=== PATIENT | female | born 1990 ===

== ENCOUNTER 2024-05-01 14:42 | Emergency (ER) | payer MEDICAID, SELFPAY ==
[2024-05-01 14:53] VITALS: BP 118/80
--- NOTE | 2024-05-01 15:10 | ED.PDOC.TRB ---
ED Provider Triage
-
A medical screening examination has been initiated by a qualified medical provider. Based on the assessment performed at this time, it has been determined that an emergent medical condition may exist and the patient has been informed that further
medical evaluation and possible additional diagnostic testing may be needed.
HPI: This is a medical evaluation conducted in person to initiate diagnostic evaluation and provide initial therapeutics. Please see further documentation by the treating clinician.
GENERAL: Alert , in no apparent distress
EYE: No visual abnormalities.
NECK: Trachea midline
ENT: No visible abnormalities.
LUNGS: No acute respiratory distress
ABD: minimal LLQ/left pelvis tenderness
NEUROLOGICAL: Alert and oriented
SKIN: Skin intact. No visible changes.
MUSCULOSKELETAL: Moving extremities normally
pain with movement o jony left hip
PSYCH: Normal and appropriate interaction.
34-year-old female 18 weeks presents for left-sided lower pelvic pain which she has had intermittently throughout her the last couple weeks but got much worse around 1 PM. She had no trauma. She is able to walk but she
does have worsening pain in her left lower pelvis with flexion of her hip. She has no radiation down her leg. Is not radiating to her back. She has no vaginal bleeding or leakage, she occasionally feels the baby move at this point of her
. She has had ultrasound showing IUP without complications. Her OB is at [place]. She has tried Tylenol for this pain.
On exam she was seated position which is making it difficult to assess but it seems as if she has left sided very low abdominal/pelvic tenderness minimally.
Her uterus is gravid but there is no tenderness there.
I discussed with the human service technician, and will be a limited evaluation of her left ovary
Because of the but hopefully they will be able to see flow to the ovary.
Given her symptoms I more suspect this is round ligament pain. Will check a urine and ultrasound and screening blood work.
[2024-05-01 15:30] LABS: % Basophils 0.3 % (0-2); % Eosinophils 1.7 % (0-6); % Immature Granulocytes 1.1 % (0-0.5); % Lymphocytes 16.9 % (20.5-51.1); % Monocytes 7.5 % (1.7-9.3); % Neutrophils 72.5 % (42.2-75.2); Absolute Eosinophils 0.2 10^3/uL (0-0.7); Absolute Immature Granulocytes 0.2 10^3/uL (0-0.05); Absolute Lymphocytes 2.4 10^3/uL (1.2-3.4); Absolute Monocytes 1.1 10^3/uL (0.1-0.6); Absolute Neutrophils 10.5 10^3/uL (1.4-6.5); Hematocrit 33.8 % (37.0-47.0); Hemoglobin 11.6 g/dL (12.0-16.0); Mean Corp Hgb Conc. 34.3 g/dL (33.0-37.0); Mean Corpuscular Hgb 30.1 pg (27.0-31.0); Mean Corpuscular Volume 87.6 fL (81.0-99.0); Nucleated Red Blood Cells % 0 %; Platelet Count 261 10^3/uL (130-400); Red Blood Cell Count 3.86 10^6/uL (4.20-5.40); Red Cell Dist. Width 13.6 % (11.5-14.5); White Blood Cell Count 14.5 10^3/uL (4.8-10.8)
[2024-05-01 15:42] LABS: ALT (SGPT) 22 U/L (0-35); AST (SGOT) 23 U/L (14-36); Albumin 4.3 g/dl (3.5-5.0); Alkaline Phosphatase 56 U/L (38-126); Blood Urea Nitrogen 7 mg/dl (7-17); Calcium 9.6 mg/dl (8.4-10.2); Carbon Dioxide 23 mmol/L (22-30); Chloride 96 mmol/L (98-107); Glucose 98 mg/dl (70-99); Potassium 3.7 mmol/L (3.5-5.1); Sodium 130 mmol/L (135-145); Total Bilirubin 0.3 mg/dl (0.2-1.3); Total Protein 7.2 g/dl (6.3-8.2); eGFR > 60.00
--- NOTE | 2024-05-01 16:00 | ED.GENMED ---
History of Present Illness
<Jazmyn Davis PA-C - Last Filed: 05/01/24 18:33>
General
Chief Complaint: Abdominal Symptoms
Source: patient
Exam Limitations: none
Time Seen by Provider: 05/01/24 15:56
Nursing documentation reviewed up to this point in time: agreed with
History of Present Illness
History of Present Illness:
34-year-old female presenting to the emergency department for evaluation of left lower pelvic pain. Patient states symptoms initially started today around 1 PM. She describes a dull, aching pain in her left pelvis with some radiation to her left
back. Patient did take a Tylenol at home and states the pain did resolve. At this moment�she is asymptomatic. She does however endorse that she had similar pain a few weeks ago which was less severe. Patient denies any associated fevers, chills,
nausea, vomiting. Patient denies any dysuria or hematuria. Patient denies any abnormal vaginal bleeding or fluid leakage. Patient reports normal appetite. Patient denies any chest pain, shortness of breath, headache.
Patient has been seeing your ECONOMIC DEVELOPMENT MANAGER as recommended throughout the . No complications thus far.
Review of Systems
<Jazmyn Davis PA-C - Last Filed: 05/01/24 18:33>
Review of Systems
Allergies reviewed?: Yes
All Other Systems: ROS reviewed and negative except as documented in HPI and ROS
Phy Exam
<Jazmyn Davis PA-C - Last Filed: 05/01/24 18:33>
Physical Exam
Physical Exam:
Vitals: Patient's vital signs are stable. Afebrile
General: Patient is very well appearing, no acute distress. Nontoxic-appearing
Skin: Warm and dry, no rashes or lesions
Head: Normocephalic, atraumatic
Eyes: Sclera nonicteric. EOMs intact. No nystagmus.
Throat: Protecting airway
Neck: Normal ROM, no cervical spine tenderness, no meningismus
Cardiac: Regular rate and rhythm, no murmurs.
Pulm: Normal respiratory effort, no wheezes, rales, rhonchi heard on exam.
Abdomen: Gravid abdomen soft and nontender. No rebound tenderness or guarding. No ecchymoses or rash.
Extremities: No evidence of cyanosis or edema. Great distal pulses
Neuro: Grossly intact.
Psychiatric: Normal affect.
Course
<Jazmyn Davis PA-C - Last Filed: 05/01/24 18:33>
Orders/Labs/Results
Orders:
Orders
05/01/24 15:01
US 2nd/3rd Trimester Urgent
Reason For Exam: attn left ovary, LLQ PAIN
05/01/24 15:12
CBC/With Diff [Complete Blood Count/With Diff] Urgent
Comprehensive Metabolic Panel Urgent
Urinalysis Reflex To Culture Urgent
Date Specimen was Collected: 05/01/24
Time Specimen was Collected: 15:03
Urine Microscopic Reflex Cult Urgent
05/01/24 16:03
0.9% Sodium Chloride 1000 ml [Nss] 1,000 ml IV BOLUS
05/01/24 16:15
Renal Only US [US Renal Only W/O Bladder] Urgent
Comment:
Reason For Exam: L lower abdomen pain
Abnormal Lab Results
05/01/24
15:12
WBC 14.5 H 10^3/uL
(4.8-10.8)
RBC 3.86 L 10^6/uL
(4.20-5.40)
Hgb 11.6 L g/dL
(12.0-16.0)
Hct 33.8 L %
(37.0-47.0)
MPV 11.0 H fL
(7.4-10.4)
Abs Immat Gran (auto) 0.2 H 10^3/uL
(0-0.05)
Absolute Neuts (auto) 10.5 H 10^3/uL
(1.4-6.5)
Absolute Monos (auto) 1.1 H 10^3/uL
(0.1-0.6)
Immature Gran % 1.1 H %
(0-0.5)
Lymphocytes % 16.9 L %
(20.5-51.1)
Sodium 130 L mmol/L
(135-145)
Chloride 96 L mmol/L
(98-107)
Creatinine 0.4 L mg/dL
(0.6-1.0)
Urine Ketones Trace A
(Negative)
Ur Occult Blood Reflex 1+ A
(Negative)
Urine Albumin (Reflex) 2+ A
(Neg - Trace)
05/01/24 15:12
05/01/24 15:12
Vital Signs
Initial and Last Documented VS:
Initial Vital Signs
Temp Pulse Resp BP Pulse Ox
98.2 F 104 16 118/80 99
05/01/24 14:53 05/01/24 14:53 05/01/24 14:53 05/01/24 14:53 05/01/24 14:53
Last Documented Vital Signs
Temp Pulse Resp BP Pulse Ox
98.2 F 113 20 122/78 99
05/01/24 14:53 05/01/24 18:08 05/01/24 18:08 05/01/24 18:08 05/01/24 14:53
<Hamida Peralta MD - Last Filed: 05/01/24 18:18>
Orders/Labs/Results
Orders:
Orders
05/01/24 15:01
US 2nd/3rd Trimester Urgent
Reason For Exam: attn left ovary, LLQ PAIN
05/01/24 15:12
CBC/With Diff [Complete Blood Count/With Diff] Urgent
Comprehensive Metabolic Panel Urgent
Urinalysis Reflex To Culture Urgent
Date Specimen was Collected: 05/01/24
Time Specimen was Collected: 15:03
Urine Microscopic Reflex Cult Urgent
05/01/24 16:03
0.9% Sodium Chloride 1000 ml [Nss] 1,000 ml IV BOLUS
05/01/24 16:15
Renal Only US [US Renal Only W/O Bladder] Urgent
Comment:
Reason For Exam: L lower abdomen pain
Abnormal Lab Results
05/01/24
15:12
WBC 14.5 H 10^3/uL
(4.8-10.8)
RBC 3.86 L 10^6/uL
(4.20-5.40)
Hgb 11.6 L g/dL
(12.0-16.0)
Hct 33.8 L %
(37.0-47.0)
MPV 11.0 H fL
(7.4-10.4)
Abs Immat Gran (auto) 0.2 H 10^3/uL
(0-0.05)
Absolute Neuts (auto) 10.5 H 10^3/uL
(1.4-6.5)
Absolute Monos (auto) 1.1 H 10^3/uL
(0.1-0.6)
Immature Gran % 1.1 H %
(0-0.5)
Lymphocytes % 16.9 L %
(20.5-51.1)
Sodium 130 L mmol/L
(135-145)
Chloride 96 L mmol/L
(98-107)
Creatinine 0.4 L mg/dL
(0.6-1.0)
Urine Ketones Trace A
(Negative)
Ur Occult Blood Reflex 1+ A
(Negative)
Urine Albumin (Reflex) 2+ A
(Neg - Trace)
05/01/24 15:12
05/01/24 15:12
Vital Signs
Initial and Last Documented VS:
Initial Vital Signs
Temp Pulse Resp BP Pulse Ox
98.2 F 104 16 118/80 99
05/01/24 14:53 05/01/24 14:53 05/01/24 14:53 05/01/24 14:53 05/01/24 14:53
Last Documented Vital Signs
Temp Pulse Resp BP Pulse Ox
98.2 F 113 20 122/78 99
05/01/24 14:53 05/01/24 18:08 05/01/24 18:08 05/01/24 18:08 05/01/24 14:53
<Jazmyn Davis PA-C - Last Filed: 05/01/24 18:33>
MDM/Problems Addressed
Differential Diagnosis Includes:
Not limited to: Round ligament pain, ovarian cyst, ovarian torsion, UTI, kidney stone, ectopic
MDM/Problems Addressed:
34-year-old female at 18 weeks gestation presenting with left pelvic discomfort which has resolved prior to arrival to emergency department. Describes as dull ache in left lower pelvis. No associated infectious symptoms. Patient without any
abnormal vaginal bleeding or fluid leakage. Vital stable. BP of 118/80. Physical exam as above. Patient has a gravid abdomen appropriate for gestational age. Abdomen is soft and nontender. She has no CVA tenderness. No lower extremity edema.
Labs were initiated in triage which show a leukocytosis of 14.5�likely reactive and normal in second trimester . Sodium of 130 noted. Patient tolerating liquids p.o. and will increase fluid intake. Otherwise no clinically significant
abnormalities. Urine shows no signs of infection although proteinuria was noted. Patient was made aware of this and will have this repeated/followed up with primary care and ECONOMIC DEVELOPMENT MANAGER.
Both a renal ultrasound and pelvic OB ultrasound were obtained. An intrauterine was documented with heart rate of 134 and gestational age of approximately 17 weeks and 5 days. No evidence of ovarian torsion. No evidence of
obstructing renal calculus on renal ultrasound. Patient remains without any discomfort in emergency department. Workup here negative. Patient remains comfortable. Suspect symptoms possibly related to round ligament pain given location and
response to Tylenol. Stable for discharge with close ECONOMIC DEVELOPMENT MANAGER follow-up. Recommend Tylenol for pain. Advised patient to stay very well-hydrated. Patient seen with attending physician
Chronic conditions affecting care:
N/A
Acute Exacerbation and/or Progression of Chronic Illness:
N/A
<Jazmyn Davis PA-C - Last Filed: 05/01/24 18:33>
*Radiology
Radiology exam reviewed: radiology read reviewed
*Pulse Oximetry
Patient hypoxic: no
*EKG
Interpreted by ED Provider?: NA
*Guide Dog Mobility Instructor Interpretation
Rate: Guide Dog Mobility Instructor- N/A
*Critical Care Note
Total Time (30-74mins, 75-104mins- exclusive of procedures): Not Applicable
ED Attending Note
<Jazmyn Davis PA-C - Last Filed: 05/01/24 18:33>
-
Portions of this chart may have been created with voice recognition software.� Occasional wrong word or��sound alike� substitutions may have occurred due to the inherent limitations of voice recognition software.
<Hamida Peralta MD - Last Filed: 05/01/24 18:18>
ED Attending Note
Patient seen and examined by attending physician: Yes
I performed the substantive portion of visit, reviewed & personally made and approve the management plan that is documented in note by myself or JA.: Yes
ED Attending Note:
34-year-old female approximately 18 weeks gestation notes pain on the left lower abdomen, reported still, earlier today which is now fully resolved. She denies vaginal bleeding, leakage of fluid, nausea, vomiting, urinary symptoms, or other
complaints. Patient had similar symptoms about a week ago and was told it was related to normal development of her . Here, patient is asymptomatic, abdomen soft. Workup unremarkable with exception of asymptomatic proteinuria which
patient is made aware of and the importance of follow-up regarding.
Discharge Plan
Departure
Patient Disposition: Home (Routine Discharge)
Date of Disposition: 05/01/24
Time of Disposition: 18:15
Patient with high blood pressure during this ER visit?: No
Condition: Good
Covid-19: Not Applicable
Discharge Problem:
Abdominal pain
Instructions: Pelvic Pain (DC), Round Ligament Pain
Referrals:
Javy Blank DPM [Family Provider] -
Activity Restrictions/Additional Instructions:
RETURN TO THE EMERGENCY DEPARTMENT WITH ANY FEVERS, CHILLS, SEVERE ABDOMINAL PAIN, VAGINAL SPOTTING, WORSENING IN CURRENT SYMPTOMS, OR ANY OTHER COCNERNS
-As discussed�it is important to stay well-hydrated. You can continue to take Tylenol as needed.
-There was a small amount of protein seen in your urine today. You should follow-up with your primary care/ECONOMIC DEVELOPMENT MANAGER for further evaluation/repeat urine sample to ensure this resolves.
Monitor your symptoms closely and return to the emergency department with any acute worsening/new symptoms.
Interventions
Interventions:
*Risk Screen - Suicide Last Done: 05/01/24 17:56
*General Assessment Last Done: 05/01/24 17:56
*Neglect/Abuse Screening Last Done: 05/01/24 17:56
*Nursing Disposition Last Done: 05/01/24 18:22
GP-Kiadxk-Gyfcfszaja Assessment Last Done: 05/01/24 17:56
Discharge Date and Time
Discharge Date/Time: 05/01/24 18:23
Print Language: TAJIK
[2024-05-01 16:20] LABS: Urine Albumin 2+ (Neg - Trace); Urine Bilirubin Negative (Negative); Urine Character Clear (Clear); Urine Color Amber; Urine Glucose Negative (Negative); Urine Ketone Trace (Negative); Urine Leukocyte Negative (Negative); Urine Nitrite Negative (Negative); Urine Occult Blood 1+ (Negative); Urine Specific Gravity 1.025 (<1.030); Urine Urobilinogen Negative (Neg - 1+)
[2024-05-01 17:09] LABS: Urine Red Blood Cell 0-2 /HPF (0-2)
[2024-05-01 18:08] VITALS: BP 122/78
== END 2024-05-01 18:23 | disposition home or self-care (01) ==
LOC: EMR 14:42
PROVIDERS: Emergency Medicine; EMERGENCY PHYSICIAN Emergency Medicine; FAMILY PHYSICIAN Podiatrist Foot & Ankle Surgery
DX: O26.892 Other specified pregnancy related conditions, second trimester (principal); R10.2 Pelvic and perineal pain; Z3A.18 18 weeks gestation of pregnancy
CPT/HCPCS: 99284; 76775; 76805; 80053; 81003; 81015; 85025

== ENCOUNTER 2025-01-28 14:20 | Emergency (ER) | payer MEDICARE, SELFPAY ==
[2025-01-28] VITALS (8 sets, daily range): BP systolic 91–142; BP diastolic 51–96; BMI 27.9
--- NOTE | 2025-01-28 15:37 | ED.GENMED ---
History of Present Illness
General
Chief Complaint: Cold/Flu/URI Symptoms
Source: patient and spouse
Exam Limitations: none
Time Seen by Provider: 01/28/25 15:09
Nursing documentation reviewed up to this point in time: agreed with
History of Present Illness
History of Present Illness:
34 yo female here for cough, fever, sore throat, swollen right neck gland past 5 days. Vaginal bleeding for past 25 days.
Last ibuprofen 3 a.m. No known sick contacts, no recent travel.
Had menses 01/01 and has been bleeding, using 2 pads a day since.
Denies abdominal pain, lightheadedness, CP, SOB
Past History
Past History
ED Past Medical History: None
ED Past Surgical History: None
Social History
Tobacco: Non-smoker
Alcohol: None
Personal:
Living: with family
Employment: Not employed
Review of Systems
Review of Systems
Allergies reviewed?: Yes
All Other Systems: ROS reviewed and negative except as documented in HPI and ROS
Constitutional: Reports fever
EENT: Reports sore throat (right side swollen gland)
Respiratory: Reports cough; Denies trouble breathing
Cardiac: Denies chest pain
ABD/GI: Denies abdominal pain, nausea, vomiting, diarrhea or anorexia
: Reports bleeding; Denies dysuria, frequency or difficulty voiding
Musculoskeletal: Reports no symptoms
Skin: Reports no symptoms
Neurological: Reports no symptoms
Phy Exam
Physical Exam
Physical Exam:
GENERAL: No acute distress. A&Ox3.
CONSTITUTIONAL: Tep 101.2
EYES: clear, conjunctivae normal
ENMT: moist mucus membranes, R tonsil enlarged, pockets of white exudate, right submandibular lymphadenopathy.
RESPIRATORY: Regular respirations, nonlabored, lungs clear. Intermittent dry cough
CARDIOVASCULAR: Tachycardic, Regular rate and rhythm, no murmurs, no rubs.
GI: Soft, nontender, normal BS
MUSCULOSKELETAL: Moves with ease. Well perfused.
SKIN: Warm, dry, normal
PSYCH: Normal mood and affect. Well kept, interactive and appropriate
NEUROLOGIC: Awake, alert and oriented. No focal neurological deficits
Sepsis
Sepsis Screening
Sepsis Assessment: Sepsis Ruled Out
Sepsis Screen
Sepsis Screen: Sepsis Ruled Out
Date: 01/28/25
Time: 20:00
Course
Orders/Labs/Results
Orders:
Orders
01/28/25 14:30
EKG [Electrocardiogram (*1)] Urgent
Reason for Study: Tachycardia
EKG- Treatment ONCE
01/28/25 15:27
0.9% Sodium Chloride 1000 ml [Nss] 1,000 ml IV BOLUS
Acetaminophen [Tylenol] 1,000 mg PO NOW STA
Test Result ONCE
01/28/25 15:28
CR Chest - 2 Views Urgent
Comment:
Reason For Exam: cough fever
US Pelvis Only (non-obstetric) Urgent
Comment:
Reason For Exam: vag bleeding past 25 days
01/28/25 15:59
COVID-19 Antigen Urgent
Source: Nasal Swab
Complete Blood Count/With Diff Urgent
Comprehensive Metabolic Panel Urgent
HCG, Serum Qualitative Screen Urgent
Monotest Urgent
Comment: ADD ON
Influenza A+B Rapid Molecular Urgent
THOMAS Source: Nasal Swab
Specimen Description:
01/28/25 18:49
Add On- LAB Urgent
Tests Added?: Monotest
01/28/25 19:02
Rapid Strep Group A Urgent
THOMAS Source: Throat/Pharynx
Specimen Description:
Date Specimen was Collected: 01/28/25
Time Specimen was Collected: 19:01
Throat Culture [Throat Culture, Comprehensive] Urgent
THOMAS Source: Tonsil
Specimen Description:
Date Specimen was Collected: 01/28/25
Time Specimen was Collected: 19:01
01/28/25 19:35
Dexamethasone Sod Phosphate [Decadron] 10 mg IV NOW STA
01/28/25 19:40
Ketorolac [Toradol] 15 mg IV NOW STA
Abnormal Lab Results
01/28/25
15:59
WBC 14.5 H 10^3/uL
(4.8-10.8)
RBC 4.08 L 10^6/uL
(4.20-5.40)
Hct 35.9 L %
(37.0-47.0)
MPV 11.2 H fL
(7.4-10.4)
Abs Immat Gran (auto) 0.1 H 10^3/uL
(0-0.05)
Absolute Neuts (auto) 10.1 H 10^3/uL
(1.4-6.5)
Absolute Monos (auto) 1.6 H 10^3/uL
(0.1-0.6)
Lymphocytes % 18.6 L %
(20.5-51.1)
Monocytes % 11.3 H %
(1.7-9.3)
Glucose 107 H mg/dl
(70-99)
ALT 53 H U/L
(0-35)
Total Protein 8.3 H g/dl
(6.3-8.2)
Monoscreen Positive A
(Negative)
01/28/25 15:59
01/28/25 15:59
Vital Signs
Initial and Last Documented VS:
Initial Vital Signs
Temp Pulse Resp BP Pulse Ox
101.2 F H 140 16 142/96 99
01/28/25 14:25 01/28/25 14:25 01/28/25 14:25 01/28/25 14:25 01/28/25 14:25
Last Documented Vital Signs
Temp Pulse Resp BP Pulse Ox
98.9 F 114 20 101/63 100
01/28/25 18:01 01/28/25 18:01 01/28/25 18:01 01/28/25 18:01 01/28/25 18:45
MDM/Problems Addressed
Differential Diagnosis Includes:
viral URI, PNA, covid, flu, strep throat, mono
,
MDM/Problems Addressed:
34 yo female here for cough, fever, sore throat, swollen right neck gland past 5 days. Vaginal bleeding for past 25 days.
Last ibuprofen 3 a.m. No known sick contacts, no recent travel.
Had menses 01/01 and has been bleeding, using 2 pads a day since.
Denies abdominal pain, lightheadedness, CP, SOB
6:00 PM:
CMP CBC: WBC 14.5 With elevated neutrophils and monos
With no clinically significant abnormality
hCG negative
COVID-negative
Influenza A and B negative
Pelvic ultrasound radiology report read: IMPRESSION: Intrauterine device is present and appears appropriately positioned within the endometrial canal. No focal abnormality of the uterus or endometrium.
Normal appearance of both ovaries. No evidence for abnormal adnexal mass or free pelvic fluid.
Chest x-ray normal
Copy of report given to patient
7:30 p.m.
Rapid strep neg
Monotest positive
*Critical Care Note
Total Time (30-74mins, 75-104mins- exclusive of procedures): Not Applicable
ED Attending Note
-
Portions of this chart may have been created with voice recognition software.� Occasional wrong word or��sound alike� substitutions may have occurred due to the inherent limitations of voice recognition software.
Discharge Plan
Departure
Patient Disposition: Home (Routine Discharge)
Date of Disposition: 01/28/25
Time of Disposition: 19:40
Patient with high blood pressure during this ER visit?: No
Condition: Fair
Covid-19: Negative COVID-19
Discharge Problem:
Pharyngitis, Mononucleosis
Instructions: Mononucleosis, Sore Throat - Adult
Prescriptions:
No Action
No Current Medications
0
Referrals:
Ishmael Blank MD [Family Provider] - As needed
Activity Restrictions/Additional Instructions:
As we discussed take Ibuprofen/Tylenol 2 tablets every 6 hours for the next 2 days, then as needed for fever, throat pain.
Drink plenty of fluids
See your doctor in 5-7 days if not MUCH BETTER by then.
Interventions
Interventions:
*Risk Screen - Suicide Last Done: 01/28/25 14:25
*General Assessment Last Done: 01/28/25 16:18
*Neglect/Abuse Screening Last Done: 01/28/25 14:25
*ED- Fall Risk Assessment Last Done: 01/28/25 16:18
*ED COVID-19 Vaccine History Last Done: 01/28/25 16:18
ED- Pulmonary Assessment Last Done: 01/28/25 16:18
Discharge Date and Time
Print Language: [id number]
[2025-01-28] MEDS: TYLENOL 1000 MG PO (16:03)
[2025-01-28] MEDS: NSS 1000 IV (16:04)
[2025-01-28 16:22] LABS: % Basophils 0.3 % (0-2); % Eosinophils 0.3 % (0-6); % Immature Granulocytes 0.3 % (0-0.5); % Lymphocytes 18.6 % (20.5-51.1); % Monocytes 11.3 % (1.7-9.3); % Neutrophils 69.2 % (42.2-75.2); Absolute Eosinophils 0.1 10^3/uL (0-0.7); Absolute Immature Granulocytes 0.1 10^3/uL (0-0.05); Absolute Lymphocytes 2.7 10^3/uL (1.2-3.4); Absolute Monocytes 1.6 10^3/uL (0.1-0.6); Absolute Neutrophils 10.1 10^3/uL (1.4-6.5); Hematocrit 35.9 % (37.0-47.0); Hemoglobin 12.2 g/dL (12.0-16.0); Mean Corpuscular Hgb 29.9 pg (27.0-31.0); Mean Platelet Volume 11.2 fL (7.4-10.4); Nucleated Red Blood Cells % 0 %; Platelet Count 265 10^3/uL (130-400); Red Blood Cell Count 4.08 10^6/uL (4.20-5.40); Red Cell Dist. Width 12.6 % (11.5-14.5); White Blood Cell Count 14.5 10^3/uL (4.8-10.8)
[2025-01-28 16:34] LABS: HCG, Serum Qualitative Screen Negative
[2025-01-28 16:37] LABS: ALT (SGPT) 53 U/L (0-35); AST (SGOT) 33 U/L (14-36); Albumin 4.6 g/dl (3.5-5.0); Alkaline Phosphatase 80 U/L (38-126); Blood Urea Nitrogen 7 mg/dl (7-17); Calcium 8.9 mg/dl (8.4-10.2); Carbon Dioxide 26 mmol/L (22-30); Chloride 104 mmol/L (98-107); Estimated Creatinine Clearance 108 ml/min; Glucose 107 mg/dl (70-99); Potassium 4.2 mmol/L (3.5-5.1); Sodium 138 mmol/L (135-145); Total Bilirubin 0.7 mg/dl (0.2-1.3); Total Protein 8.3 g/dl (6.3-8.2); eGFR > 60.00
[2025-01-28 16:38] LABS: COVID-19 Antigen Negative (Negative)
[2025-01-28 19:54] LABS: Monotest Positive (Negative)
[2025-01-28] MEDS: DECADRON 10 MG IV (19:57)
[2025-01-28] MEDS: TORADOL 15 MG IV (20:01)
== END 2025-01-28 20:20 | disposition home or self-care (01) ==
LOC: EMR 14:20
PROVIDERS: Registered Nurse; EMERGENCY PHYSICIAN Emergency Medicine; FAMILY PHYSICIAN Internal Medicine
DX: B27.90 Infectious mononucleosis, unspecified without complication (principal); N93.9 Abnormal uterine and vaginal bleeding, unspecified; Z11.52 Encounter for screening for COVID-19
CPT/HCPCS: 96374; 96375; 96361; 99284; 71046; 76856; 80053; 84703; 85025; 86308; 87070; 87502; 87811; 87880; 93005

== ENCOUNTER 2025-04-19 13:03 | Emergency (ER) | payer OTHER, SELFPAY ==
[2025-04-19 13:19] VITALS: BP 136/86
[2025-04-19 17:55] LABS: Urine Character Clear (Clear)
[2025-04-19 17:56] LABS: HCG, Urine Qualitative Screen Negative
[2025-04-19 18:10] LABS: Urine Squamous Cell 0-2 /LPF (Few)
[2025-04-19 18:11] LABS: Urine Red Blood Cell 0-2 /HPF (0-2); Urine White Cell 0-2 /HPF (0-5)
[2025-04-19] MEDS: TORADOL 60 MG IM (18:46)
[2025-04-19 20:00] VITALS: BP 138/86
--- NOTE | 2025-04-19 21:24 | ED.GENMED ---
History of Present Illness
General
Chief Complaint: Back Pain
Source: patient and spouse
Time Seen by Provider: 04/19/25 16:30
History of Present Illness
History of Present Illness:
Note:
CHIEF COMPLAINT(S)
Severe back pain.
HISTORY OF PRESENT ILLNESS
The patient is a 35-year-old female presenting with severe back pain. She describes this as a recurring issue, with the current episode being more intense than previous ones. The pain reportedly recurs two to three times yearly. Previously, pain
medication prescribed by her primary care provider provided relief within two to three days. However, this episode has been particularly severe, limiting her mobility and causing her significant discomfort. The pain is worsened by movement and is
somewhat alleviated when lying still. The patient reports that prior episodes have occasionally included radiating pain down the legs, but this time the pain is localized to her back. She denies associated weakness in her lower extremities or
problems with urination or bowel movements. The patient started prednisone and baclofen, a muscle relaxant, the day before the visit.
REVIEW OF SYSTEMS
- Musculoskeletal: Severe back pain; mobility severely restricted by pain; tenderness reported bilaterally, deeper upon palpation.
- Neurological: No weakness in lower extremities; normal motor function and sensation.
- Urinary: Denies problems with urination.
PHYSICAL EXAM
General: Alert, no acute distress.
Skin: Warm, dry.
Head: Normocephalic, atraumatic.
Neck: Supple, trachea midline.
Eye Ears, nose, mouth, and throat: Oral mucosa moist.
Cardiovascular: Normal peripheral perfusion, no edema.
Respiratory: Respirations are non-labored.
Gastrointestinal: Abdomen nondistended.
Back: Limited range of motion due to pain, tenderness on both sides, none at midline.
Musculoskeletal: Normal range of motion, normal strength.
Neurological: Alert and oriented to person, place, time, and situation, no focal neurological deficit observed. No clonus. Normal patellar DTRs bilaterally
Psychiatric: Cooperative, appropriate mood & affect.
PROBLEM LIST
Acute: Severe back pain, limited mobility due to pain, tenderness in the back.
PLAN
1. Conduct a urine test to rule out any blood or kidney issues contributing to the pain.
2. Obtain lumbar spine X-rays to assess for potential underlying structural issues.
3. Administer an injection for pain relief.
DIFFERENTIAL DIAGNOSIS
The Differential Diagnosis includes, in no particular order and is not limited to:
1. Lumbar strain or sprain
2. Herniated disc
3. Spinal stenosis
4. Osteoarthritis of the spine
5. Sacroiliac joint dysfunction
6. Vertebral compression fracture
7. Spondylolisthesis
8. Urinary tract infection
9. Kidney stones
10. Ankylosing spondylitis
CARE-UPDATE
04/19/25 - 21:24
X-rays and urine analysis returned normal. Patient reports persistent pain, although being advised that complete relief may not be immediate. Pain management plan includes continued use of pain medication and discussion of steroids, specifically a
five-day course of methylprednisolone. Consideration given to extending steroid treatment if necessary, acknowledging varied patient responses. Advised against continued use of muscle relaxers if ineffective. Prescription for short-term opiate pain
relief was provided with precautions discussed. Suggested physical rest for 48 hours, with introduction to physical therapy and strengthening exercises once acute symptoms resolve. Consideration of MRI and specialist referral if symptoms persist.
Advised on safe medication storage and disposal. Discussed back support options like leg and head pillows for comfort during rest.
Disposition:
SUMMARY OF ENCOUNTER
The patient is a 35-year-old female seen for severe back pain. There was no evidence of chronic cancer, heart emergency, or infection. The urinalysis indicated no blood or leukocytes but showed a small amount of albumin. Lumbar X-ray revealed no
bony abnormalities, and an intrauterine device (IUD) was in place. The patient was counseled on the importance of follow-up and advised to rest for the next two to three days.
PLAN
The patient was advised to stop taking baclofen, as it was ineffective. Her steroid dosing will be expanded over 10 days to manage inflammation. Pain control will be provided for breakthrough pain. The patient was recommended to follow up with her
primary care provider (PCP) to consider further evaluation with an MRI, outpatient physical therapy, or spine specialty follow-up as needed.
INDEPENDENT REVIEW OF LABS AND INTERPRETATION OF TESTS
- My independent review of the urinalysis shows no blood, no leukocytes, and a small amount of albumin.
- My independent interpretation of the hCG test is negative.
- My independent interpretation of the lumbar X-ray shows no bony abnormalities and an IUD in place.
PATIENT EDUCATION AND COUNSELING
The patient was educated on the importance of resting for the next two to three days and the need for follow-up with her primary care provider.
FOLLOW-UP INSTRUCTIONS
The patient was advised to follow up with her primary care provider to consider further diagnostics such as an MRI and explore options for outpatient physical therapy or a spine specialty follow-up.
MEDICATION RECONCILIATION
- Advised discontinuation of baclofen.
- Expanded steroid dosing over 10 days.
- Prescription for pain control medication for breakthrough pain was provided.
MEDICAL DECISION MAKING
- Number and Complexity of Problems Addressed: Chronic conditions affecting care include severe back pain.
- Data:
- Category 1:
- Urinalysis and hCG test reviewed.
- Lumbar X-ray interpreted independently.
- Category 3:
- Plan includes pain management and follow-up for possible MRI and specialty care.
- Risk:
- Prescription medication was prescribed, including extended steroid therapy and pain control for breakthrough pain.
DIAGNOSIS
- Severe back pain (M54.5)
Past History
Past History
ED Past Medical History: None
ED Past Surgical History: None
Social History
Tobacco: Non-smoker
Alcohol: None
Personal:
Living: with family
Employment: Not employed
Phy Exam
Physical Exam
Physical Exam:
.
Course
Orders/Labs/Results
Orders:
Orders
04/19/25 17:28
Test Result ONCE
04/19/25 17:41
HCG, Urine Qualitative Screen Urgent
Date Specimen was Collected: 04/19/25
Time Specimen was Collected: 17:39
Urinalysis Reflex To Culture Urgent
Date Specimen was Collected: 04/19/25
Time Specimen was Collected: 17:47
Urine Microscopic Reflex Cult Urgent
04/19/25 17:52
Add On- LAB Urgent
Comments:: UA with reflex
Tests Added?: UA with reflex
04/19/25 18:00
Ketorolac [Toradol] 60 mg IM NOW STA
Lumbar Spine, 2 or 3 View [CR Lumbar Spine 2 Or 3 Views] Urgent
Comment:
Reason For Exam: back pain, no trauma
04/19/25 21:24
Hydrocodone 5/APAP 325 [[place] 5/325] 2 tablet PO NOW STA
Abnormal Lab Results
04/19/25
17:41
Urine Albumin (Reflex) 2+ A
(Neg - Trace)
Vital Signs
Initial and Last Documented VS:
Initial Vital Signs
Temp Pulse Resp BP Pulse Ox
98.2 F 79 18 136/86 97
04/19/25 13:19 04/19/25 13:19 04/19/25 13:19 04/19/25 13:19 04/19/25 13:19
Last Documented Vital Signs
Temp Pulse Resp BP Pulse Ox
98.2 F 82 18 138/86 97
04/19/25 20:00 04/19/25 20:00 04/19/25 20:00 04/19/25 20:00 04/19/25 21:25
*Pulse Oximetry
SaO2: 97
Oxygen Mode of Delivery: Room air
Patient hypoxic: no
*Critical Care Note
Total Time (30-74mins, 75-104mins- exclusive of procedures): Not Applicable
ED Attending Note
-
Portions of this chart may have been created with voice recognition software.� Occasional wrong word or��sound alike� substitutions may have occurred due to the inherent limitations of voice recognition software.
Discharge Plan
Departure
Patient Disposition: Home (Routine Discharge)
Date of Disposition: 04/19/25
Time of Disposition: 21:26
Patient with high blood pressure during this ER visit?: No
Discharge Problem:
Low back pain
Instructions: Low Back Pain (DC)
Prescriptions:
New
hydrocodone-acetaminophen 5-325 mg tablet
2 tab PO Q6H PRN (Reason: Pain) Qty: 12 0RF
prednisone 10 mg Tablet
See Rx Instructions .ROUTE .COMPLEX Qty: 30 0RF
Rx Instructions:
Take By Mouth:
40 mg daily x3 days, 30 mg daily x3 days,
20 mg daily x3 days, 10 mg daily x3 days.
Referrals:
Ishmael Blank MD [Family Provider]
Activity Restrictions/Additional Instructions:
Return immediately for numbness, tingling, motor weakness, worsening pain, fevers, vomiting or any other concerns. Please see your doctor in the next 3 days for follow-up and reevaluation. Further workup with an MRI may be necessary. In addition,
when you are feeling better physical therapy may be necessary. If pain persist, outpatient follow-up with continuous improvement specialist may be necessary. Please keep narcotic pain medication out of reach of children and do not drive or make important decisions
while taking narcotic pain medicine as discussed
Interventions
Interventions:
*Risk Screen - Suicide Last Done: 04/19/25 13:24
*General Assessment Last Done: 04/19/25 17:13
*Neglect/Abuse Screening Last Done: 04/19/25 13:24
*ED- Fall Risk Assessment Last Done: 04/19/25 17:13
*Nursing Disposition Last Done: 04/19/25 21:50
ED-Musculoskeletal Assessment Last Done: 04/19/25 17:13
Discharge Date and Time
Discharge Date/Time: 04/19/25 21:51
Print Language: TURKISH
[2025-04-19] MEDS: NORCO 5/325 2 TABLET PO (21:49)
== END 2025-04-19 21:51 | disposition home or self-care (01) ==
LOC: EMR 13:03
PROVIDERS: EMERGENCY PHYSICIAN Emergency Medicine; FAMILY PHYSICIAN Internal Medicine
DX: M54.50 Low back pain, unspecified (principal)
CPT/HCPCS: 99284; 96372; 72100; 81003; 81015; 81025